=== PATIENT | female | born 1965 | race Caucasian/White ===

== ENCOUNTER 2018-12-04 14:55 | Emergency (ER) | payer MEDICARE ==
[~2018-12-04] VITALS: Ht 167.6 cm; Wt 79.5 kg
[2018-12-04 15:06] VITALS: Ht 167.6 cm; Wt 79.5 kg
[2018-12-04] MEDS ORDERED: LYRICA225 MG PO (15:09)
[2018-12-04] MEDS ORDERED: ULTRAM50 MG PO (15:10)
[2018-12-04] MEDS ORDERED: STERAPRED 5MG 125 MG PO (15:10)
[2018-12-04] MEDS ORDERED: HYDROCODON-ACE1 EAC7 PO (15:10)
[2018-12-04] MEDS ORDERED: SINGULAIR10 MG PO (15:11)
[2018-12-04] MEDS ORDERED: AZELASTINE137 MCG/0. NASAL (15:11)
[2018-12-04] MEDS ORDERED: FOLIC ACID1 MG PO (15:12)
[2018-12-04] MEDS ORDERED: HYDROXYCHLOROQUINE (15:13)
[2018-12-04] MEDS ORDERED: AZULFIDINE500 MG PO (15:13)
[2018-12-04] MEDS ORDERED: VOLTAREN75 MG PO (15:14)
[2018-12-04] MEDS ORDERED: ZANAFLEX4 MG PO (15:14)
[2018-12-04] MEDS ORDERED: CLOTRIMAZOLE-BE30 ML TOPICAL (15:15)
[2018-12-04] MEDS ORDERED: ALEGRA (15:15)
[2018-12-04 18:30] VITALS: BP 14/85
== END 2018-12-04 18:00 | disposition home or self-care (01) ==
LOC: D.ER 14:55
DX: M54.30 Sciatica, unspecified side (principal)

== ENCOUNTER → 2018-12-13 12:21 | Outpatient (CLI) | payer MEDICARE ==
[2018-12-04 15:06] VITALS: BMI 28.3
[~2018-12-13 12:21] MED LIST: ALEGRA; AZELASTINE137 MCG/0. NASAL; AZULFIDINE500 MG PO; CLOTRIMAZOLE-BE30 ML TOPICAL; FOLIC ACID1 MG PO; HYDROCODON-ACE1 EAC7 PO; HYDROXYCHLOROQUINE; LYRICA225 MG PO; SINGULAIR10 MG PO; STERAPRED 5MG 125 MG PO; ULTRAM50 MG PO; VOLTAREN75 MG PO; ZANAFLEX4 MG PO
== END | disposition home or self-care (01) ==
LOC: D.MRI 12:21
PROVIDERS: ATTEND Internal Medicine Rheumatology
DX: M25.551 Pain in right hip (principal)